=== PATIENT | male | born 2000 | race Caucasian/White ===

== ENCOUNTER 2020-09-14 18:51 | Emergency (ER) | payer OTHER ==
[~2020-09-14] VITALS: Ht 177.8 cm; Wt 79.5 kg
[2020-09-14] MEDS ORDERED: NAPROXEN 250 MG TAB PO ONE (20:00)
--- NOTE | 2020-09-14 20:03 | REP ---
INDICATION: pain and swelling after a fall. COMPARISON: None. FINDINGS: No acute fracture or destructive osseous lesion. IMPRESSION: Negative exam <Electronically signed by Brian Estrada > 09/14/201999
[2020-09-14] MEDS ORDERED: NAPR-837 PO (20:31)
[2020-09-14 20:38] VITALS: BP 145/63
== END 2020-09-14 21:09 | disposition home or self-care (01) ==
LOC: M ED 18:51
DX: S80.12XA Contusion of left lower leg, initial encounter (principal); W18.39XA Other fall on same level, initial encounter; Y92.89 Other specified places as the place of occurrence of the external cause; Y99.0 Civilian activity done for income or pay; F17.210 Nicotine dependence, cigarettes, uncomplicated